=== PATIENT | male | born 1975 | race African-American/Black ===

== ENCOUNTER 2016-11-27 07:28 | Emergency (ER) | payer MEDICAID ==
[~2016-11-27] VITALS: Ht 167.6 cm; Wt 85.3 kg
[~2016-11-27 07:28] MED LIST: ALPR-229 PO; CALC625T31 PO; DIVA500T7 PO; EMTRTAB10 PO; LORA-154 PO; LURA20TA PO; MONT10TA23 PO; RANI-229 PO
[2016-11-27 08:10] LABS: Basophils # (auto) 0 uL; Basophils % (auto) 1.1 % (0.0-2.0); CONDITION Y; Eosinophils # (auto) 0.1 uL; Eosinophils % (auto) 1.7 % (0.0-7.0); Hematocrit 41.5 % (41.0-53.0); Lymphocytes # (auto) 1.4 uL; Lymphocytes % (auto) 34.7 % (10.0-50.0); Mean Corpuscular Hemoglobin 31.7 pg (28.0-32.0); Mean Corpuscular Hgb Conc. 33.7 g/dL (32.0-36.0); Mean Platelet Volume 7.5 fL (7.4-10.4); Monocytes # (auto) 0.4 uL; Monocytes % (auto) 9.7 % (0.0-12.0); Neutrophils # (auto) 2.2 uL; Neutrophils % (auto) 52.8 % (37.0-80.0); Platelet Count (auto) 268 10^3/uL (140-450); Red Cell Distribution Width 14.6 % (11.6-16.0); White Blood Cell 4.1 10^3/uL (4.4-10.8)
[2016-11-27 08:45] LABS: Albumin 3.6 g/dL (3.4-5.0); Alkaline Phosphatase 77 U/L (45-117); Anion Gap 5 (5-15); BUN/Creatinine Ratio 6.5; Bilirubin, Total < 0.1 mg/dL (0.2-1.0); Blood Urea Nitrogen 8 mg/dL (7-18); Calcium 9.2 mg/dL (8.5-10.1); Carbon Dioxide 29 mmol/L (21-32); Chloride 104 mmol/L (98-107); GFR African American 83 mL/min; GFR Non-African American 69 mL/min; Glucose 113 mg/dL (74-106); Sodium 138 mmol/L (136-145)
[2016-11-27 08:46] LABS: Potassium 4.3 mmol/L (3.5-5.1)
[2016-11-27 08:47] LABS: Aspartate Aminotransferase 18 U/L (15-37)
[2016-11-27 09:41] VITALS: BP 117/81
== END 2016-11-27 11:05 | disposition home or self-care (01) ==
LOC: ER 07:29
DX: R07.89 Other chest pain (principal); J45.909 Unspecified asthma, uncomplicated; I10 Essential (primary) hypertension; E11.9 Type 2 diabetes mellitus without complications; Z88.8 Allergy status to other drugs, medicaments and biological substances
CPT/HCPCS: 36415; 71020; 80053; 84484; 85025; 93005

== ENCOUNTER 2018-08-14 14:16 | Emergency (ER) | payer MEDICAID ==
[~2018-08-14] VITALS: Ht 170.2 cm; Wt 87.1 kg
[~2018-08-14 14:16] MED LIST changes: +DIVA1TAB59 PO; -DIVA500T7 PO
[2018-08-14 16:53] VITALS: BP 99/67
[2018-08-14] MEDS ORDERED: KETOROLAC TROMETH 60MG/2ML VIAL IM ONE (17:15)
== END 2018-08-14 17:48 | disposition home or self-care (01) ==
LOC: ER 14:16
DX: H53.8 Other visual disturbances (principal); R51 Headache; J45.909 Unspecified asthma, uncomplicated; E11.9 Type 2 diabetes mellitus without complications; K21.9 Gastro-esophageal reflux disease without esophagitis; I10 Essential (primary) hypertension
CPT/HCPCS: 70450; 82962; 96372; 99284; J1885

== ENCOUNTER 2019-06-29 12:30 | Emergency (ER) | payer OTHER, MEDICAID ==
[~2019-06-29] VITALS: Ht 182.9 cm; Wt 81.6 kg
[~2019-06-29 12:30] MED LIST changes: -ALPR-229 PO; +ALPR2TAB6 PO; -EMTRTAB10 PO; +[UNRECOGNIZED DRUG - CODE] PO
[2019-06-29] MEDS ORDERED: SODIUM CHLORIDE 0.9% 1,000 ML IV ONE ×2 (12:44)
[2019-06-29 13:28] LABS: Basophils # (auto) 0 uL; Basophils % (auto) 0.4 % (0.0-2.0); Eosinophils # (auto) 0 uL; Eosinophils % (auto) 0.6 % (0.0-7.0); Hematocrit 33.7 % (41.0-53.0); Lymphocytes # (auto) 1.3 uL; Lymphocytes % (auto) 21.2 % (10.0-50.0); Mean Corpuscular Hemoglobin 31.2 pg (28.0-32.0); Mean Corpuscular Hgb Conc. 32.6 g/dL (32.0-36.0); Mean Corpuscular Volume 95.7 fL (80.0-100.0); Monocytes # (auto) 0.8 uL; Monocytes % (auto) 12.9 % (0.0-12.0); Neutrophils % (auto) 64.9 % (37.0-80.0); Platelet Count (auto) 249 10^3/uL (140-450); Red Blood Cells 3.52 10^6/uL (4.5-5.90); Red Cell Distribution Width 13.4 % (11.8-14.3); White Blood Cell 6.2 10^3/uL (4.4-10.8)
[2019-06-29 13:38] LABS: Acetaminophen < 2.0 ug/mL (10-30); Salicylate < 1.7 mg/dL (2.8-20.0)
[2019-06-29 13:39] LABS: Albumin 2.9 g/dL (3.4-5.0); BUN/Creatinine Ratio 11.3; Blood Alcohol < 3.0 mg/dL (0-5); Blood Urea Nitrogen 15 mg/dL (7-18); Calcium 9.4 mg/dL (8.5-10.1); Carbon Dioxide 24 mmol/L (21-32); GFR African American 76 mL/min; GFR Non-African American 63 mL/min; Glucose 101 mg/dL (74-106)
[2019-06-29 13:51] LABS: Anion Gap 6 (5-15); Chloride 113 mmol/L (98-107); Potassium 5.4 mmol/L (3.5-5.1); Sodium 143 mmol/L (136-145)
[2019-06-29 14:46] LABS: Alanine Aminotransferase 11 U/L (16-61); Alkaline Phosphatase 76 U/L (45-117); Aspartate Aminotransferase 13 U/L (15-37); Bilirubin, Total 0.3 mg/dL (0.2-1.0); Total Protein 6.3 g/dL (6.4-8.2)
[2019-06-29 16:00] VITALS: BP 128/94
[2019-06-29] MEDS ORDERED: DEXTROSE (50%) 50ML SYRG IV ONE (16:15)
[2019-06-29] MEDS ORDERED: InsuLIN REG 1unit/0.01ml Soln (100units/ml) IV ONE (16:15)
[2019-06-29] MEDS ORDERED: ALBUTEROL SULF 2.5 MG/0.5ML(0.5%) NEB SOLN NEB ONE (16:15)
[2019-06-29] MEDS ORDERED: CALCIUM GLUC 4.65meq/50ml D5AE 50 ML IV ONE (16:15)
[2019-06-29] MEDS ORDERED: SODIUM BICARBONATE 8.4% INJ 50ML SYRINGE IV ONE (16:15)
[2019-06-29] MEDS ORDERED: SODIUM ZIRCONIUM CYCL 10 GM PAK PO ONE (16:15)
== END 2019-06-29 17:50 | disposition home or self-care (01) ==
LOC: EDBD 12:30 → EDUNIT# 12:37 → ER 12:37
DX: E87.5 Hyperkalemia (principal); E86.0 Dehydration; T50.905A Adverse effect of unspecified drugs, medicaments and biological substances, initial encounter; Y92.89 Other specified places as the place of occurrence of the external cause; Z88.8 Allergy status to other drugs, medicaments and biological substances
CPT/HCPCS: 36415; 80053; 80320; 80329; 85025; 93005; 94640; 96361; 96365; 96375; 99284; J0610; J1815; J7042; J7611